=== PATIENT | female | born 1960 | race Caucasian/White ===

== ENCOUNTER 2017-07-27 07:48 | Day surgery (SDC) | payer OTHER ==
[~2017-07-27] VITALS: Ht 172.7 cm; Wt 125.0 kg
[~2017-07-27 07:48] MED LIST: LOSA50 PO; LOSARTAN-HCTZ1 EACH PO; TRIA15CR3 TOP
== END 2017-07-27 09:51 | disposition home or self-care (01) ==
LOC: ORSCSDS 07:48
PROVIDERS: Internal Medicine Gastroenterology
PROC: 0DBP8ZX Excision of Rectum, Via Natural or Artificial Opening Endoscopic, Diagnostic (ICD-10-PCS; principal; 2017-07-27 09:00)
DX: Z12.11 Encounter for screening for malignant neoplasm of colon (principal); K62.1 Rectal polyp; K64.8 Other hemorrhoids; I10 Essential (primary) hypertension; K57.30 Diverticulosis of large intestine without perforation or abscess without bleeding; E66.01 Morbid (severe) obesity due to excess calories; Z68.41 Body mass index [BMI] 40.0-44.9, adult; Z87.891 Personal history of nicotine dependence; Z79.899 Other long term (current) drug therapy
CPT/HCPCS: 88305; J7120

== ENCOUNTER → 2020-03-12 | Outpatient (CLI) | payer OTHER | END | disposition home or self-care (01) | LOC: LAB SHORT 15:39 → PLD 15:39 | DX: D22.111 Melanocytic nevi of right upper eyelid, including canthus (principal) | CPT/HCPCS: 88305 ==